=== PATIENT | female | born 1935 | race Caucasian/White ===

== ENCOUNTER 2018-05-05 20:17 | Inpatient (IN) | payer OTHER ==
[~2018-05-05] VITALS: Ht 162.6 cm; Wt 55.1 kg
--- NOTE | ~2018-05-05 | O ---
[facility] [place] [address] OPERATIVE REPORT Name: TENNILLE HESS Room #: 242-P ADM IN M.R.#: [id number] Admission: 05/05/18 Attend Phys: Bowen Larsen MD Discharge: Date of : 36 Report #: [id number] THIS REPORT FOR: //name// CC: Isiah Larsen MD DATE OF SERVICE: 05/11/2018 SURGEON: Zen Fraser MD GRAIN FARMWORKER: NICKY Castillo PREOPERATIVE DIAGNOSES: 1. Perforated viscus. 2. Hypertension. 3. Hyperlipidemia. 4. Seizures. POSTOPERATIVE DIAGNOSES: 1. Perforated duodenal ulcer. 2. Hypertension. 3. Hyperlipidemia. 4. Seizures. PROCEDURES: 1. Exploratory laparotomy. 2. Suture repair of perforated duodenal ulcer. 3. Mobilization and omental flap buttressing of perforated duodenal ulcer repair. 4. Placement of negative pressure topical wound VAC. ANESTHESIA: General anesthesia. ESTIMATED BLOOD LOSS: 5 mL. SPECIMEN: None. COMPLICATIONS: None appreciated. INDICATIONS FOR PROCEDURE: This is an 82-year-old female patient who resides at [facility] who was found down with an altered mental status on 05/04/2018. She was admitted to [facility] and had witnessed seizure activity while in the intensive care unit. She has had difficulty with left upper quadrant abdominal pain and developed worsening abdominal pain and distention over the past couple of days while not passing flatus or bowel movements. CT of the abdomen and pelvis today revealed a moderate amount of [facility] [address] [place] [address] OPERATIVE REPORT Name: TENNILLE HESS Room #: 242-P ADM IN M.R.#: [id number] Admission: 05/05/18 Attend Phys: Bowen Larsen MD Discharge: Date of : 36 Report #: [id number] free intraperitoneal air in the upper abdomen and diverticulosis without diverticulitis changes. On exam, the patient had tenderness to palpation in the upper abdomen with rebound and mild voluntary guarding. She presents for exploratory laparotomy for a perforated viscus. OPERATIVE FINDINGS: Upon entrance in the abdominal cavity, free fluid was encountered and with further exploration in the right upper quadrant of the abdomen, she was found to have a 2.5 cm perforation of the duodenal bulb. Light green-colored fluid was present in this area. She also was amenable to primary transverse repair so as not to narrow the lumen of the duodenum. There was no bleeding associated with the ulcer. The ulcer was located on the anterior surface of the duodenal bulb. I was able to mobilize an omental flap for buttressing. After placing the flap, there was no tension on the repair. No other significant intra-abdominal pathology was identified; however, the colon was distended. There were no acute inflammatory changes associated with the colon. No palpable masses or firm stool was present. The nasogastric tube had been placed beyond the repair prior to closure of the ulcer. At the conclusion of the operation, the sponge, needle, and instrument counts were correct. DESCRIPTION OF PROCEDURE IN DETAIL: After the risks, benefits, and expectations were discussed in detail with the patient and her power of employee benefits attorney, informed consent was obtained. The patient was identified in the preoperative holding area. She was given IV antibiotics as documented in the chart in line with the SCIP metrics. The patient was then taken to the operating room and she was placed in the supine position. SCDs were placed on the patient's bilateral lower extremities and pneumatic compression was initiated. The patient was then given IV sedation and she was intubated without incident. A time-out was performed to identify the correct patient and procedure after prepping and draping the patient's abdomen. A sharp #10 blade scalpel was used to make a vertical upper midline incision through the skin and subcutaneous tissue. Electrocautery was used to dissect further through the subcutaneous tissue down to the fascia. The fascia was then opened along the length of the incision with electrocautery. The peritoneum was entered. Free fluid was encountered as was a krause of free air. Upon palpation of the duodenum, light green-colored enteric fluid was encountered. This was readily suctioned. The ulcer was immediately seen. The incision was extended in a more cephalad and inferior direction along the midline and the fascia was opened accordingly with electrocautery. Bleeding points were made hemostatic. The Omni retractor was then placed and an omental flap was mobilized as a vascular pedicle to help buttress the repair. [id number] 3-0 PDS sutures were then placed x 5 transversely to primarily close the defect. The tails of the sutures were left intact. These were used to secure the omental flap to the repair. After doing so, simple interrupted 3-0 PDS sutures were used to further secure the flap to the serosal surface of [address] [address] OPERATIVE REPORT Name: TENNILLE HESS Room #: 242-P [facility] IN M.R.#: [id number] Admission: 05/05/18 Attend Phys: Bowen Larsen MD Discharge: Date of : 36 Report #: [id number] the duodenum. A 19-Turkish KHOI drain was then placed within the abdominal cavity and brought out through a stab wound in the right lower quadrant of the abdomen. The drain was secured to the skin with a 2-0 nylon suture. It was positioned intraabdominally to course near the repair. The abdominal cavity was then copiously irrigated and suctioned until return of all drainage ran clear. This required nearly 5 liters of fluid. After ensuring final hemostasis within the abdominal cavity, the midline abdominal wall fascia was closed with a running looped #1 PDS suture. Prior to tying the suture, digital exam revealed no incorporation of bowel or other contents. A malleable retractor had been used to help with closure. Prior to closure, the sponge, needle and instrument counts were correct as well. The wound was then irrigated with normal saline. The skin was closed with corrie. The skin was then cleansed and dried. Benzoin was applied and the Prevena topical wound VAC was placed with a good seal and no leak. The patient tolerated the procedure well. She was awakened, however, not breathing off her anesthetic and remained intubated. She was transferred to the recovery room in stable condition with plans for transfer to the intensive care unit for immediate postoperative management and ventilator weaning. I communicated with Dr. Larsen, the managing primary care physician/ hospitalist immediately after the operation. We will plan to inject the nasogastric tube with contrast on postoperative day #4 prior to initiating po intake. The patient will also likely need TPN for nutritional support. <ELECTRONICALLY SIGNED> By: Zen Fraser MD, FACS 05/12/18 0740 1659 1744 Zen Fraser MD, FACS /nt
--- NOTE | ~2018-05-05 | HC ---
[facility] [place] [address] CONSULTATION Name: TENNILLE HESS Room #: 245-P ADM IN M.R.#: [id number] Admission: 05/05/18 Attend Phys: Bowen Larsen MD Discharge: Date of : 36 Report #: [id number] THIS REPORT FOR: //name// CC: Isiah Larsen REASON FOR CONSULTATION: I was asked to evaluate concerning encephalopathy and leukocytosis. HISTORY OF PRESENT ILLNESS: The patient is an 82-year-old who presents by EMS to the Emergency Room on 05/05/2018 after being found on the floor in her apartment at [facility] by her neighbor. She had had issues with hypertension and Dr. Parker had been adjusting her medications. This history is from the patient's nurse who has talked with her family. Apparently, she was having issues with uncontrolled blood pressure. She is having some back pain. Missed 2 meals yesterday and was found on the floor unconscious in her underwear. There was no emesis. She had not lost bowel or bladder function. EMS measured her blood sugar, it was 132. She then awoke and was agitated when she presented to the Emergency Room. She then, during her evaluation, had a witnessed seizure. Now given Ativan. The patient was unable to give any details of her history. She was confused; however, she was awake and conversant. She did not follow commands consistently. She has remained afebrile and hemodynamically stable. She did receive several liters of fluid from her initial admission. No other report of trauma. No history of seizure disorder. As far as I can tell, there were no fevers, chills or sweats in the days leading up to her presentation. ALLERGIES: None. MEDICATIONS: As noted on her MAR, medications include lorazepam, Keppra, vancomycin and Zosyn. PAST MEDICAL HISTORY: Hypertension, otherwise unclear at this time. FAMILY HISTORY AND SOCIAL HISTORY: Otherwise not available. REVIEW OF SYSTEMS: She has had no cough or sputum production. She has had no nausea, vomiting or diarrhea. She now has indwelling Jacobson catheter. IV access intact. Oxygen at 2 liters per nasal cannula. PHYSICAL EXAMINATION: VITAL SIGNS: Afebrile. Her temperature on admission was 95.3, blood pressure 118/68, MAP of 77, pulse was 81, O2 saturation 99% on 2 liters per nasal cannula. HEENT: Unremarkable. NECK: 1+ rigidity, although her muscle tone was increased throughout and was most consistent with her extremity examination. [address] [address] CONSULTATION Name: TENNILLE HESS Room #: 245-P [facility] IN M.R.#: [id number] Admission: 05/05/18 Attend Phys: Bowen Larsen MD Discharge: Date of : 36 Report #: [id number] SKIN: Several bruises to her lower extremities. No ulcerations or cellulitis identified. No adenopathy. LUNGS: Clear. HEART: Regular without murmur. ABDOMEN: Soft, nontender, no hepatosplenomegaly or mass appreciated. GENITOURINARY: External genitalia unremarkable with indwelling Jacobson catheter. EXTREMITIES: Unremarkable. NEUROLOGIC: Nonfocal. She was alert and able to converse, although was confused. LABORATORY STUDIES: Initial sodium was 123, now 131; potassium 3.2; bicarbonate at 25; creatinine 1.4; AST 121; bilirubin 1.3; alkaline phosphatase 142; ALT 44; albumin 4. CPK 4244. Troponin 2.27. BNP 41,542. Hemoglobin 12.8; white count 18,000; platelet count 218,000. Differential with 86% neutrophils, 9% lymphs. TSH 1.4. Vitamin B12 1166. Urinalysis 3+ protein, 2+ glucose, 1+ ketones, 3+ blood with rare wbc's, few rbc's, few bacteria. Blood cultures are pending. Chest x-ray was clear. CT scan of the head showed no acute change. IMPRESSION: An 82-year-old with altered mental status, having been found down at home, having evidence of a seizure, unclear if she had a seizure at her home or this was just a finding since admission. She has a leukocytosis, likely acute kidney injury, rhabdomyolysis, possibly cardiac injury with the elevated troponin. She had hypothermia with transient hypotension down in the 90s systolic. Still unclear if the leukocytosis is related to stress reaction or underlying infection. With the altered mental status and leukocytosis, we will need to evaluate further for evidence of meningoencephalitis. RECOMMENDATIONS: We will continue broad antibiotic coverage including acyclovir. Arrange for lumbar puncture. Await EEG and echocardiogram. Continue full support. <ELECTRONICALLY SIGNED> By: Rizwan Duff MD 05/06/18 1735 0925 1508 Rizwan Duff MD /nt
--- NOTE | ~2018-05-05 | EEG ---
[facility] [place] [address] ELECTROENCEPHALOGRAM Name: TENNILLE HESS Room #: 242-P ADM IN M.R.#: [id number] Admission: 05/05/18 Attend Phys: Bowen Larsen MD Discharge: Date of : 36 Report #: [id number] THIS REPORT FOR: //name// CC: Isiah Larsen DATE OF SERVICE: 05/07/2018 DATE OF EE05/07/2018. This patient is being evaluated for the seizure. EEG was done by placing the electrode by standard 10-20 system of electrode placement. Both referential and sequential montages were used for recording. Background activity in this patient's EEG is about 8 Hz and 30 microvolt. Photic stimulation is unremarkable. The patient went to sleep and that is associated with bilaterally symmetrical sleep spindle and vertex sharp waves. Seizure activity is still present, but appeared to have diminished since yesterday. IMPRESSION: Continuation of seizure activity arising in the left cerebral hemisphere, but that is slightly better than yesterday. <ELECTRONICALLY SIGNED> By: Sathya Contreras MD 05/15/18 1423 1439 0345 Sathya Contreras MD /nt
--- NOTE | ~2018-05-05 | EEG ---
[facility] [place] [address] ELECTROENCEPHALOGRAM Name: TENNILLE HESS Room #: 242-P ADM IN M.R.#: [id number] Admission: 05/05/18 Attend Phys: Bowen Larsen MD Discharge: Date of : 36 Report #: [id number] THIS REPORT FOR: //name// CC: Isiah Larsen DATE OF SERVICE: 05/08/2018 This patient is being evaluated for seizures arising from the left side. A lot of artifact is present, but background activity appeared to be about 9-10 Hz and 30 microvolts. The patient appeared to be asleep during part of this EEG and that is associated with bilaterally symmetrical sleep spindle and vertex sharp waves. Photic stimulation is unremarkable. Epileptiform activity arising from the left cerebral hemisphere is better, but has not resolved. IMPRESSION: Epileptiform activity arising from the left cerebral hemisphere has improved, but has not resolved. Thank you very much for this referral. <ELECTRONICALLY SIGNED> By: Sathya Contreras MD 05/15/18 1423 1732 1744 Sathya Contreras MD /nt
--- NOTE | ~2018-05-05 | 2DMMODE ---
[facility] [address] [place] [address] 2 D/M-MODE ECHOCARDIOGRAM Name: TENNILLE HESS Room #: 245-P ADM IN M.R.#: [id number] Admission: 05/05/18 Attend Phys: Bowen Larsen, Discharge: Date of : 37 Date of Service: 05/06/18 1104 Report #: [id number] THIS REPORT FOR: //name// APPROVED REPORT Study performed: 05/06/2018 08:48:15 EXAM: Comprehensive 2D, Doppler, and color-flow Echocardiogram Patient Location: ICU Room #: [facility] Status: routine BSA: 1.52 HR: 85 bpm BP: 138/62 mmHg Other Information Study Quality: Fair Indications Elevated Troponin 2D Dimensions RVDd: 32.75 mm LVEF(%): 50.90 (>50%) IVSd: 10.01 (7-11mm) LVOT Diam: 18.41 (18-24mm) LVDd: 41.31 mm PWd: 8.80 (7-11mm) Ascending Ao: 24.78 (22-36mm) LVDs: 30.73 (25-40mm) Aortic Root: 25.63 mm Glover's LVEF: 50.90 % Volumes Left Atrial Volume (Systole) Single Plane 4CH: 35.03 mL Single Plane 2CH: 42.60 mL LA ESV Index: 27.00 mL/m2 Aortic Valve AoV Peak Sergey.: 1.35 m/s AO Peak Gr.: 7.87 mmHg LVOT Max P.02 mmHg LVOT Max V: 1.00 m/s HAZEL Vmax: 1.97 cm2 Mitral Valve E/A Ratio: 0.8 MV Decel. Time: 252.22 ms MV E Max Sergey.: 0.71 m/s [facility] [place] [address] 2 D/M-MODE ECHOCARDIOGRAM Name: TENNILLE HESS Room #: 245-P ADM IN M.R.#: [id number] Admission: 05/05/18 Attend Phys: Bowen Larsen, Discharge: Date of : 36 Date of Service: 05/06/18 1104 Report #: [id number] A Sergey.: 0.89 m/s MV PHT: 73.15 ms IVRT: 69.20 ms Pulmonary Valve PV Peak Sergey.: 0.91 m/s PV Peak Gr.: 3.34 mmHg Pulmonary Vein P Vein S: 0.32 m/s P Vein A: 0.32 m/s P Vein D: 0.26 m/s P Vein A Dur.: 110.7 msec P Vein S/D Ratio: 1.23 Tricuspid Valve TR Peak Sergey.: 3.77 m/s TR Peak Gr.: 56.90 mmHg PA Pressure: 60.00 mmHg Left Ventricle The left ventricle is normal size. There is normal left ventricular wall thickness. The left ventricular systolic function is normal. The left ventricular ejection fraction is within the normal range. LVEF is 55-60%. Grade I - abnormal relaxation pattern. Right Ventricle The right ventricle is normal size. The right ventricular systolic function is normal. Atria The left atrium size is normal. The right atrium size is normal. Aortic Valve The aortic valve is normal in structure. Aortic valve is calcified. Trace to mild aortic regurgitation. There is no aortic valvular stenosis. Mitral Valve The mitral valve is normal in structure. Mild mitral regurgitation. No evidence of mitral valve stenosis. Tricuspid Valve The tricuspid valve is normal in structure. There is trace to mild tricuspid regurgitation. Estimated PAP 60 mmHg plus the right atrial pressure. There is moderate pulmonary hypertension. Pulmonic Valve [address] [address] 2 D/M-MODE ECHOCARDIOGRAM Name: TENNILLE HESS Room #: 245-P [facility] IN ..#: [id number] Admission: 05/05/18 Attend Phys: Bowen Larsen, Discharge: Date of : 36 Date of Service: 05/06/18 1104 Report #: [id number] The pulmonary valve is normal in structure. There is no pulmonic valvular regurgitation. Great Vessels The aortic root is normal in size. IVC is not well visualized. Pericardium There is no pericardial effusion. <Conclusion> The left ventricle is normal size. LVEF is 55-60%. Grade I - abnormal relaxation pattern. The right ventricle is normal size. The left atrium size is normal. The aortic valve is normal in structure. Aortic valve is calcified. Trace to mild aortic regurgitation. Mild mitral regurgitation. There is trace to mild tricuspid regurgitation. Estimated PAP 60 mmHg plus the right atrial pressure. There is moderate pulmonary hypertension. There is no pulmonic valvular regurgitation. The aortic root is normal in size. There is no pericardial effusion. <ELECTRONICALLY SIGNED> By: Lennox Monahan MD, FACC 05/06/18 1104 1104 1104 Lennox Monahan MD, FACC /INF
--- NOTE | ~2018-05-05 | HC ---
[facility] [place] [address] CONSULTATION Name: TENNILLE HESS Room #: 242-P ADM IN M.R.#: [id number] Admission: 05/05/18 Attend Phys: Bowen Larsen MD Discharge: Date of : 36 Report #: [id number] THIS REPORT FOR: //name// CC: Isiah Larsen DATE OF SERVICE: 05/06/2018 HISTORY OF PRESENT ILLNESS: This is an 82-year-old female patient who is not able to provide any reliable history. I talked to the nurse practitioner who saw this patient on admission, and I talked to the nurses looking after this patient. Neurology consult was requested this morning because the nurses noticed that the patient had a seizure. It looks like it was a grand mal seizure which came spontaneously. It lasted for a few minutes, and she was unresponsive at that time, but she has become more responsive, but not much. Review of the records indicate that this patient lives in independent living, but she was found unresponsive. What caused her unresponsiveness is not clear. She has multiple metabolic abnormalities. REVIEW OF SYSTEMS: Indicates that this patient lives in independent living. I do not have the number of any durable power of employment law attorney on her. Records indicate that she is on a blood thinner, which is Plavix. This patient was found unresponsive in her apartment. Her blood sugar is 132. It is not clear when she took the last dose of her Plavix. I am not able to reach any family in this patient. She was found to have multiple abnormalities when she was in the Emergency Room. It looks like her white count was 25.7. Her hemoglobin was 17, indicating that she might be dehydrated. Her GFR was only 36. Her sodium was 123, and her potassium was low and so was her magnesium, and they are all being replaced. She was hypothermic. She also had an elevated troponin level. The best I can tell, she does not have a seizure disorder, but I am not able to reach anybody to confirm the history. REVIEW OF SYSTEMS: A 14-point review of system was carried out, but it was mostly from the records. This is because the patient cannot provide any history. Relevant 14-point review of system is summarized above. PAST MEDICAL HISTORY: Basically unavailable in this patient because nobody can provide any history. I cannot get it from the record or from the patient. FAMILY HISTORY: Also unavailable. SOCIAL HISTORY: She lives in an independent living. There was some question that she drinks occasional alcohol, but that history is not confirmed. PHYSICAL EXAMINATION: Indicates she is sleepy, but she wakes up, she says something which is not understandable. She does not follow commands on a [facility] [address] [place] [address] CONSULTATION Name: TENNILLE HESS Room #: 242-P [facility] IN M.R.#: [id number] Admission: 05/05/18 Attend Phys: Bowen Larsen MD Discharge: Date of : 36 Report #: [id number] persistent basis, but she does it on an occasional basis. Cranial nerve examination 2-12 was attempted, it is very difficult to carry out in this patient, and I could not have any definite impression. I do not even know whether she can move all 4 extremities because she will not cooperate. I tried to do the sensation, but she was not able to cooperate. She does not understand the instruction for cerebellar sign, and she cannot cooperate with the fundus examination. She is moderately built individual who does not have any dysmorphic features of eyes, ears and face. I believe she can hear and see things. She does not have a thyroid mass. Pulses are difficult to feel. She does not appear to have edema or cyanosis. VITAL SIGNS: Blood pressure is 133/55, pulse is 81, respirations 21. LABORATORY DATA: White count is high at 25.7, and she has multiple electrolyte abnormality. She did have a CT scan of the head on admission and that was reviewed and that does not show any definite abnormality. We cannot get any history whether there is any contraindication for MRI in this patient or not. IMPRESSION: Pretty difficult to form in this patient because no history is available. Part of her problem is hyponatremia, but we do not know the cause of her hyponatremia either, especially we do not know whether it is part of syndrome of inappropriate antidiuretic hormone secretion or not. She does appear to be septic with a white count so high. She is also keeping her neck extended and that is also difficult to evaluate because of her limited ability to cooperate. The question of the blood thinners is also not very clear. All of it make the evaluation and management of this patient very difficult. RECOMMENDATIONS: 1. Ideally, this patient should have a spinal tap. We do not know the history of Plavix in this patient. If she had Plavix recently, we have to wait for the spinal tap. In the meantime, I will suggest treating her sepsis and probably starting on CARGO VESSEL STEWARDESS penetrating antimicrobial in case there is a CARGO VESSEL STEWARDESS infection. When the history becomes more clear, I would like to do an MRI as well as an LP. I discussed the patient with a nurse practitioner health care consultant for hospitalist and discussed my plan with her. She okayed a consult with Dr. Duff from Infectious Disease, and we will consult him and see if we can start her on some CARGO VESSEL STEWARDESS penetrating antimicrobial until we get some more history. 2. I will go ahead and do an EEG in this patient. I will continue Keppra since she had a seizure. I would like to do a C-spine CT to make sure there is no pathology there, especially because she was found passed off and cannot clear her neck by her symptoms. Once the more history is available, we might like to do an MRI in this patient if there is no contraindication and maybe, an LP depending upon when the last dose of Plavix. [facility] [address] [place] [address] CONSULTATION Name: TENNILLE HESS Room #: 242-P ADM IN M.R.#: [id number] Admission: 05/05/18 Attend Phys: Bowen Larsen MD Discharge: Date of : 36 Report #: [id number] Thank you very much for this referral and if you have any questions please feel free to contact me. <ELECTRONICALLY SIGNED> By: Sathya Contreras MD 05/15/18 1422 0713 1108 Sathya Contreras MD /nt
--- NOTE | ~2018-05-05 | EEG ---
[facility] [place] [address] ELECTROENCEPHALOGRAM Name: TENNILLE HESS Room #: 242-P ADM IN M.R.#: [id number] Admission: 05/05/18 Attend Phys: Bowen Larsen MD Discharge: Date of : 37 Report #: [id number] THIS REPORT FOR: //name// CC: Isiah Larsen DATE OF SERVICE: 05/06/2018 This patient is being evaluated for seizures. EEG was done by placing the electrode by standard 10-20 system of electrode placement. Both referential and sequential montages were used for recording. Background activity on the right side appeared to be about 8 Hz and 30 microvolt. On the left side, epileptiform activity was noticed arising from the frontotemporal area. The patient is drowsy and that is associated with bilateral slowing. Photic stimulation is unremarkable. IMPRESSION: This is an abnormal EEG, which demonstrate finding consistent with periodic lateralizing epileptiform discharges from the left cerebral hemisphere. Because of that, the possibility of a stroke or infection in that region should be excluded. These can occur because of epilepsy also, but other etiologies must be excluded. Thank you very much for this referral. <ELECTRONICALLY SIGNED> By: Sathya Contreras MD 05/15/18 1423 1210 1240 Sathya Contreras MD /nt
--- NOTE | ~2018-05-05 | EKG ---
[address] [address] ELECTROCARDIOGRAM REPORT Name: TENNILLE HESS Room #: 245-P ADM IN M.R.#: [id number] Admission: 05/05/18 Attend Phys: Bowen Larsen MD Discharge: Date of : 37 Report #: [id number] THIS REPORT FOR: //name// [facility] ED Test Date: 2018-05-05 Test Time: 20:54:59 Pat Name: TENNILLE HESS Department: Room: Gender: F Cook Helper: rafael : 1935 Requested By: Mike Granado Order Number: [id number] MD: Guanakito Villalba Measurements Intervals Valders Rate: 51 P: 0 CO: 161 QRS: -24 QRSD: 91 T: 1 QT: 584 QTc: 539 Interpretive Statements Sinus rhythm Borderline left axis deviation Prolonged QT interval No previous ECG available for comparison Electronically Signed On 05-07-2018 7:35:44 CDT by Guanakito Villalba [email or web address] <ELECTRONICALLY SIGNED> By: Guanakito Villalba MD, [facility] 05/07/18 0735 53 53 Guanakito Villalba MD, [facility] /EPI
[2018-05-05 20:19] VITALS: BP 138/78
[2018-05-05 20:55] LABS: HEMATOCRIT 50.2 % (37.0-47.0); MCH 32.5 pg (26.0-34.0); MCHC 33.9 g/dL (28.0-37.0); MCV 95.8 fL (80.0-100.0); PLATELET COUNT 332 thou/uL (150-400); RBC 5.24 mil/uL (4.20-5.00); RDW 12.2 % (10.5-14.5); WBC 25.7 thou/uL (4.0-11.0)
[2018-05-05 21:10] LABS: CALCIUM 8.8 mg/dL (8.5-10.1); CREATININE 1.4 mg/dL (0.6-1.0)
[2018-05-05 21:13] LABS: ABSOLUTE NEUTROPHILS 22.1 thou/uL (1.4-8.2)
[2018-05-05 21:15] LABS: POTASSIUM 2.6 mmol/L (3.5-5.1)
[2018-05-05 21:20] LABS: TOTAL BILIRUBIN 1.3 mg/dL (<0.1-1.0); TOTAL PROTEIN 8.4 g/dL (6.4-8.2)
[2018-05-05 21:24] LABS: TROPONIN-I 1.38 ng/mL (<0.06)
[2018-05-05 23:13] LABS: URINE BILIRUBIN NEGATIVE (Negative); URINE BLOOD 3+ (Negative); URINE COLOR YELLOW; URINE GLUCOSE-RANDOM* 2+ (Negative); URINE KETONES 1+ (Negative); URINE LEUKOCYTES-REFLEX NEGATIVE (Negative); URINE NITRITE-REFLEX NEGATIVE (Negative); URINE PROTEIN (DIPSTICK) 3+ (Negative); URINE UROBILINOGEN 0.2 E.U./dl (0.2-1.0)
[2018-05-05 23:15] LABS: URINE CLARITY SL CLOUDY
[2018-05-05 23:22] LABS: SQUAMOUS >10 Many /LPF (0-3)
[2018-05-05 23:23] LABS: BACTERIA-REFLEX 1-9 Few /HPF (None Seen); CASTS None Seen /LPF (None Seen); CRYSTALS None Seen /LPF (None Seen); URINE RBC 3-10 Few /HPF (0-2); URINE WBC-REFLEX 0-5 Rare /HPF (0-5)
[2018-05-05 23:50] VITALS: BP 106/65
[2018-05-06] VITALS (80 sets, daily range): BP systolic 75–187; BP diastolic 47–162
[2018-05-06 04:30] LABS: HEMATOCRIT 37.5 % (37.0-47.0); MCH 32.6 pg (26.0-34.0); MCHC 34.2 g/dL (28.0-37.0); MCV 95.5 fL (80.0-100.0); RBC 3.93 mil/uL (4.20-5.00); RDW 12.3 % (10.5-14.5)
[2018-05-06 04:32] LABS: HEMOGLOBIN 12.8 gm/dL (12.0-15.0)
[2018-05-06 05:06] LABS: CALCIUM 7.6 mg/dL (8.5-10.1); CREATININE 1.4 mg/dL (0.6-1.0); MAGNESIUM 1.6 mg/dL (1.8-2.4); POTASSIUM 3.2 mmol/L (3.5-5.1)
[2018-05-06 05:08] LABS: TROPONIN-I 2.27 ng/mL (<0.06)
[2018-05-06] MEDS ORDERED: NORVASC10 MG PO (08:29)
[2018-05-06] MEDS ORDERED: NORVASC5 MG PO (08:29)
[2018-05-06] MEDS ORDERED: XANAX 0.5 MG0.5 M1 PO (08:30)
[2018-05-06] MEDS ORDERED: LEVOXYL100 MCG PO (08:31)
[2018-05-06] MEDS ORDERED: FOSAMAX 70 MG T70 MG PO (08:53)
[2018-05-06] MEDS ORDERED: PLAVIX 75 MG TA75 M1 PO (08:53)
[2018-05-06 11:46] LABS: MAGNESIUM 2.5 mg/dL (1.8-2.4)
[2018-05-06 11:47] LABS: POTASSIUM 4.5 mmol/L (3.5-5.1)
[2018-05-06 11:50] LABS: APTT 26.4 Seconds (24.5-32.8); FIBRINOGEN 313.1 mg/dL (210-360); INR 1.1; PROTIME 10.8 Seconds (9.3-11.4)
[2018-05-06 14:58] LABS: CSF CLARITY CLEAR; CSF COLOR COLORLESS; VOLUME 13 ml
[2018-05-06 15:06] LABS: CSF GLUCOSE 87 mg/dL (40-70); CSF PROTEIN 69 mg/dL (15-45)
[2018-05-06 15:44] LABS: CSF RBC 6 /mm3; CSF WBC 2 /mm3 (0-10)
[2018-05-06] MEDS ORDERED: ATENOLOL 100MG100 MG PO (16:18)
[2018-05-06] MEDS ORDERED: ASPIR 8181 MG PO (16:18)
[2018-05-07] VITALS (23 sets, daily range): BP systolic 126–177; BP diastolic 45–126
[2018-05-07 04:36] LABS: HEMATOCRIT 31.1 % (37.0-47.0); MCHC 35.2 g/dL (28.0-37.0); MCV 96.5 fL (80.0-100.0); RBC 3.22 mil/uL (4.20-5.00); RDW 12.3 % (10.5-14.5); WBC 13.6 thou/uL (4.0-11.0)
[2018-05-07 04:38] LABS: CREATININE 1.1 mg/dL (0.6-1.0); MAGNESIUM 2.4 mg/dL (1.8-2.4); POTASSIUM 3.6 mmol/L (3.5-5.1); TROPONIN-I 0.47 ng/mL (<0.06)
[2018-05-07 08:43] LABS: HSV PCR SOURCE CSF
[2018-05-08] VITALS (24 sets, daily range): BP systolic 155–198; BP diastolic 56–162
[2018-05-08 05:47] LABS: HEMATOCRIT 30.6 % (37.0-47.0); HEMOGLOBIN 10.7 gm/dL (12.0-15.0); MCV 94.1 fL (80.0-100.0); RBC 3.26 mil/uL (4.20-5.00); RDW 12.2 % (10.5-14.5); WBC 15.2 thou/uL (4.0-11.0)
[2018-05-08 06:14] LABS: CALCIUM 7.2 mg/dL (8.5-10.1); CREATININE 0.8 mg/dL (0.6-1.0); MAGNESIUM 2.1 mg/dL (1.8-2.4)
[2018-05-08 20:06] LABS: HSV 1 DNA Negative (Negative); HSV 2 DNA Negative (Negative)
[2018-05-09 00:15] VITALS: BP 166/82
[2018-05-09 04:23] VITALS: BP 146/54
[2018-05-09 05:33] LABS: HEMATOCRIT 28.9 % (37.0-47.0); HEMOGLOBIN 10.2 gm/dL (12.0-15.0); MCH 33.3 pg (26.0-34.0); MCHC 35.2 g/dL (28.0-37.0); MCV 94.6 fL (80.0-100.0); RBC 3.06 mil/uL (4.20-5.00); RDW 12.1 % (10.5-14.5); WBC 12.5 thou/uL (4.0-11.0)
[2018-05-09 05:53] LABS: CALCIUM 7.7 mg/dL (8.5-10.1); CREATININE 0.6 mg/dL (0.6-1.0); MAGNESIUM 1.5 mg/dL (1.8-2.4); POTASSIUM 3.5 mmol/L (3.5-5.1)
[2018-05-09 15:00] VITALS: BP 160/62
[2018-05-09 19:23] VITALS: BP 142/51
[2018-05-10 00:37] VITALS: BP 167/61
[2018-05-10 05:05] VITALS: BP 176/69
[2018-05-10 05:22] LABS: CALCIUM 7.6 mg/dL (8.5-10.1); CREATININE 0.7 mg/dL (0.6-1.0); HEMATOCRIT 25.4 % (37.0-47.0); MAGNESIUM 1.9 mg/dL (1.8-2.4); MCH 33.9 pg (26.0-34.0); MCHC 35.6 g/dL (28.0-37.0); MCV 95.4 fL (80.0-100.0); RBC 2.67 mil/uL (4.20-5.00); RDW 12.3 % (10.5-14.5)
[2018-05-10 05:26] LABS: POTASSIUM 2.9 mmol/L (3.5-5.1)
[2018-05-10 09:12] VITALS: BP 141/53
[2018-05-10 16:08] VITALS: BP 208/91
[2018-05-10 17:58] LABS: MAGNESIUM 2.3 mg/dL (1.8-2.4); POTASSIUM 3.8 mmol/L (3.5-5.1)
[2018-05-10 18:10] VITALS: BP 179/66
[2018-05-10 20:00] VITALS: BP 172/81
[2018-05-11] VITALS (8 sets, daily range): BP systolic 120–180; BP diastolic 51–75
[2018-05-11 11:13] LABS: HEMATOCRIT 35.1 % (37.0-47.0); MCHC 34.7 g/dL (28.0-37.0); MCV 95.1 fL (80.0-100.0); RBC 3.69 mil/uL (4.20-5.00); RDW 12.5 % (10.5-14.5); WBC 13.1 thou/uL (4.0-11.0)
[2018-05-11 11:28] LABS: ALBUMIN 1.9 g/dL (3.4-5.0); CALCIUM 8.1 mg/dL (8.5-10.1); CREATININE 0.8 mg/dL (0.6-1.0); MAGNESIUM 1.9 mg/dL (1.8-2.4); POTASSIUM 3.1 mmol/L (3.5-5.1); TOTAL BILIRUBIN 0.3 mg/dL (<0.1-1.0); TOTAL PROTEIN 4.8 g/dL (6.4-8.2)
[2018-05-11 11:31] LABS: HEMOGLOBIN 12.2 gm/dL (12.0-15.0)
[2018-05-11 18:44] LABS: BE(vivo) -5.1 mmol/L (-2 to +3); HCO3 19.9 mmol/L (22.0-26.0); PO2 502.3 mmHg (80.0-100.0); pH 7.349 (7.360-7.450); sO2 99.9 % (92.0-98.0)
[2018-05-11 22:11] LABS: ICTOTEST (BILI CONFIRMATORY) Negative (Negative); URINE BILIRUBIN NEGATIVE (Negative); URINE BLOOD 2+ (Negative); URINE CLARITY CLEAR; URINE COLOR YELLOW; URINE GLUCOSE-RANDOM* NEGATIVE (Negative); URINE KETONES TRACE (Negative); URINE LEUKOCYTES-REFLEX NEGATIVE (Negative); URINE NITRITE-REFLEX NEGATIVE (Negative); URINE PROTEIN (DIPSTICK) 1+ (Negative); URINE SPECIFIC GRAVITY <= 1.005 (1.005-1.035); URINE UROBILINOGEN 0.2 E.U./dl (0.2-1.0)
[2018-05-11 22:19] LABS: BACTERIA-REFLEX 1-9 Few /HPF (None Seen); CASTS None Seen /LPF (None Seen); CRYSTALS None Seen /LPF (None Seen); SQUAMOUS 0-3 Few /LPF (0-3); URINE RBC 3-10 Few /HPF (0-2); URINE WBC-REFLEX None Seen /HPF (0-5)
[2018-05-12] VITALS (25 sets, daily range): BP systolic 106–155; BP diastolic 39–65
[2018-05-12 04:45] LABS: CREATININE 1.3 mg/dL (0.6-1.0); MAGNESIUM 2.1 mg/dL (1.8-2.4); POTASSIUM 4.1 mmol/L (3.5-5.1)
[2018-05-12 05:43] LABS: HEMATOCRIT 32.6 % (37.0-47.0); HEMOGLOBIN 11.2 gm/dL (12.0-15.0); MCH 33.4 pg (26.0-34.0); MCHC 34.3 g/dL (28.0-37.0); MCV 97.4 fL (80.0-100.0); RBC 3.35 mil/uL (4.20-5.00); RDW 12.6 % (10.5-14.5); WBC 16.1 thou/uL (4.0-11.0)
[2018-05-12 15:42] LABS: CALCIUM 7.7 mg/dL (8.5-10.1); CREATININE 1.4 mg/dL (0.6-1.0); POTASSIUM 3.6 mmol/L (3.5-5.1)
[2018-05-13] VITALS (25 sets, daily range): BP systolic 130–192; BP diastolic 46–85
[2018-05-13 05:34] LABS: ABSOLUTE NEUTROPHILS 9.7 thou/uL (1.4-8.2); BASOPHILS 0.5 % (0.0-2.0); EOSINOPHILS 2.8 % (0.0-3.0); HEMATOCRIT 27.5 % (37.0-47.0); HEMOGLOBIN 9.6 gm/dL (12.0-15.0); MCH 33.3 pg (26.0-34.0); MCHC 35.1 g/dL (28.0-37.0); PLATELET COUNT 237 thou/uL (150-400); POLYS 78.7 % (36.0-66.0); RBC 2.89 mil/uL (4.20-5.00); RDW 12.5 % (10.5-14.5); WBC 12.3 thou/uL (4.0-11.0)
[2018-05-13 05:42] LABS: CREATININE 1.3 mg/dL (0.6-1.0); MAGNESIUM 2.2 mg/dL (1.8-2.4); POTASSIUM 3.7 mmol/L (3.5-5.1)
[2018-05-14] VITALS (25 sets, daily range): BP systolic 147–194; BP diastolic 52–78
[2018-05-14 05:24] LABS: ABSOLUTE NEUTROPHILS 7.8 thou/uL (1.4-8.2); BASOPHILS 0.8 % (0.0-2.0); EOSINOPHILS 3.2 % (0.0-3.0); HEMATOCRIT 28.3 % (37.0-47.0); HEMOGLOBIN 9.5 gm/dL (12.0-15.0); MCH 33.1 pg (26.0-34.0); MCHC 33.4 g/dL (28.0-37.0); MCV 99.3 fL (80.0-100.0); MONOCYTES 8.3 % (1.0-8.0); PLATELET COUNT 251 thou/uL (150-400); POLYS 75.7 % (36.0-66.0); RBC 2.85 mil/uL (4.20-5.00); RDW 13.3 % (10.5-14.5); WBC 10.3 thou/uL (4.0-11.0)
[2018-05-14 05:30] LABS: CALCIUM 7.9 mg/dL (8.5-10.1); CREATININE 0.9 mg/dL (0.6-1.0); PHOSPHORUS 3.9 mg/dL (2.5-4.9); POTASSIUM 4.1 mmol/L (3.5-5.1)
[2018-05-15] VITALS (17 sets, daily range): BP systolic 127–181; BP diastolic 50–96
[2018-05-15 05:15] LABS: ABSOLUTE NEUTROPHILS 8.7 thou/uL (1.4-8.2); BASOPHILS 0.6 % (0.0-2.0); EOSINOPHILS 2.4 % (0.0-3.0); HEMOGLOBIN 9.5 gm/dL (12.0-15.0); LYMPHOCYTES 9.2 % (24.0-44.0); MCH 33.7 pg (26.0-34.0); MCV 99.1 fL (80.0-100.0); MONOCYTES 8.4 % (1.0-8.0); PLATELET COUNT 220 thou/uL (150-400); POLYS 79.4 % (36.0-66.0); RBC 2.83 mil/uL (4.20-5.00); RDW 12.8 % (10.5-14.5); WBC 10.9 thou/uL (4.0-11.0)
[2018-05-15 05:20] LABS: ALBUMIN 1.5 g/dL (3.4-5.0); CALCIUM 7.8 mg/dL (8.5-10.1); CREATININE 0.8 mg/dL (0.6-1.0); MAGNESIUM 1.8 mg/dL (1.8-2.4); POTASSIUM 3.9 mmol/L (3.5-5.1); TOTAL BILIRUBIN 0.1 mg/dL (<0.1-1.0); TOTAL PROTEIN 4.9 g/dL (6.4-8.2)
[2018-05-16] VITALS (7 sets, daily range): BP systolic 163–186; BP diastolic 64–73
[2018-05-16 05:04] LABS: HEMATOCRIT 29.1 % (37.0-47.0); HEMOGLOBIN 9.7 gm/dL (12.0-15.0); MCH 32.4 pg (26.0-34.0); MCHC 33.4 g/dL (28.0-37.0); PLATELET COUNT 266 thou/uL (150-400); RDW 12.7 % (10.5-14.5); WBC 14.7 thou/uL (4.0-11.0)
[2018-05-16 05:17] LABS: ALBUMIN 1.5 g/dL (3.4-5.0); CALCIUM 7.8 mg/dL (8.5-10.1); CREATININE 0.7 mg/dL (0.6-1.0); POTASSIUM 3.4 mmol/L (3.5-5.1); TOTAL BILIRUBIN 0.2 mg/dL (<0.1-1.0); TOTAL PROTEIN 5.1 g/dL (6.4-8.2)
[2018-05-16 09:37] LABS: ABSOLUTE NEUTROPHILS 12.2 thou/uL (1.4-8.2); ANISOCYTOSIS SLIGHT; MYELOCYTES 1 %
[2018-05-16 09:38] LABS: LARGE PLATELETS OCCASIONAL
[2018-05-17 03:30] LABS: ABSOLUTE NEUTROPHILS 11.3 thou/uL (1.4-8.2); BASOPHILS 0.9 % (0.0-2.0); EOSINOPHILS 1.9 % (0.0-3.0); HEMATOCRIT 29.4 % (37.0-47.0); HEMOGLOBIN 10.1 gm/dL (12.0-15.0); LYMPHOCYTES 9.8 % (24.0-44.0); MCH 33.1 pg (26.0-34.0); MCHC 34.2 g/dL (28.0-37.0); MCV 96.7 fL (80.0-100.0); MONOCYTES 6.9 % (1.0-8.0); PLATELET COUNT 296 thou/uL (150-400); POLYS 80.5 % (36.0-66.0); RBC 3.04 mil/uL (4.20-5.00); RDW 12.9 % (10.5-14.5)
[2018-05-17 03:38] LABS: CREATININE 0.7 mg/dL (0.6-1.0); POTASSIUM 3.2 mmol/L (3.5-5.1)
[2018-05-17 04:48] VITALS: BP 175/75
[2018-05-17 07:19] VITALS: BP 163/75
[2018-05-17 11:57] VITALS: BP 171/84
[2018-05-17 17:14] VITALS: BP 166/99
[2018-05-17 17:37] LABS: MAGNESIUM 2.5 mg/dL (1.8-2.4); POTASSIUM 3.9 mmol/L (3.5-5.1)
[2018-05-17 19:20] VITALS: BP 153/80
[2018-05-18 03:38] VITALS: BP 176/77
[2018-05-18 04:24] LABS: HEMOGLOBIN 10.1 gm/dL (12.0-15.0); MCH 33.6 pg (26.0-34.0); MCHC 34.7 g/dL (28.0-37.0); MCV 96.9 fL (80.0-100.0); RBC 2.99 mil/uL (4.20-5.00); RDW 12.7 % (10.5-14.5); WBC 12.1 thou/uL (4.0-11.0)
[2018-05-18 04:27] LABS: ALBUMIN 1.6 g/dL (3.4-5.0); CREATININE 0.8 mg/dL (0.6-1.0); POTASSIUM 3.7 mmol/L (3.5-5.1); TOTAL BILIRUBIN 0.3 mg/dL (<0.1-1.0); TOTAL PROTEIN 5.5 g/dL (6.4-8.2)
[2018-05-18 05:13] VITALS: BP 169/77
[2018-05-18 07:18] VITALS: BP 196/82
[2018-05-18 11:27] VITALS: BP 159/81
[2018-05-18 15:46] VITALS: BP 158/87
[2018-05-18 19:49] VITALS: BP 155/87
[2018-05-19 05:05] VITALS: BP 175/79
[2018-05-19 06:47] LABS: ABSOLUTE NEUTROPHILS 6.9 thou/uL (1.4-8.2); EOSINOPHILS 2.8 % (0.0-3.0); HEMATOCRIT 26.7 % (37.0-47.0); HEMOGLOBIN 9.4 gm/dL (12.0-15.0); LYMPHOCYTES 17.2 % (24.0-44.0); MCH 34.3 pg (26.0-34.0); MCHC 35.4 g/dL (28.0-37.0); MONOCYTES 8.9 % (1.0-8.0); PLATELET COUNT 297 thou/uL (150-400); POLYS 70.1 % (36.0-66.0); RBC 2.75 mil/uL (4.20-5.00); RDW 12.7 % (10.5-14.5); WBC 9.9 thou/uL (4.0-11.0)
[2018-05-19 06:56] LABS: CREATININE 0.7 mg/dL (0.6-1.0)
[2018-05-19 07:27] VITALS: BP 191/83
[2018-05-19 12:03] VITALS: BP 202/95
[2018-05-19 12:46] VITALS: BP 177/69
[2018-05-19] MEDS ORDERED: LISINOPRIL10 MG PO (16:12)
[2018-05-19] MEDS ORDERED: ENALAPRILA1.25 MG/M1 IV PUSH (16:12)
[2018-05-19] MEDS ORDERED: ZOSYN 3.373.375 GM/1 IV (16:12)
[2018-05-19] MEDS ORDERED: KEPPRA750 MG PO (16:12)
[2018-05-19] MEDS ORDERED: ATIVAN0.5 MG PO (16:12)
[2018-05-19] MEDS ORDERED: ACCUNEB SO1.25 MG/1 INH (16:12)
[2018-05-19] MEDS ORDERED: FENTANYL 0.50 MCG/ML IV PUSH (16:12)
[2018-05-19] MEDS ORDERED: DIFLUCAN200 MG PO (16:12)
[2018-05-19 17:37] VITALS: BP 162/70
== END 2018-05-19 18:00 | DRG 853 ==
LOC: ER 20:17 → EROBS 22:08 → 2N 22:08 → ICU 22:08 → 4E 05-08 15:45 → ICU 05-08 15:45 → 4E 05-08 15:45 → ICU 05-11 18:06 → 2N 05-15 15:33 → ICU 05-15 15:33 → 2N 05-19 18:00
PROVIDERS: Emergency Medicine; Hospitalist; Internal Medicine; Internal Medicine Pulmonary Disease; Nurse Practitioner Acute Care; Specialist; Surgery
PROC: B01B1ZZ Fluoroscopy of Spinal Cord using Low Osmolar Contrast (ICD-10-PCS; principal; 2018-05-06)
PROC: 02HV33Z Insertion of Infusion Device into Superior Vena Cava, Percutaneous Approach (ICD-10-PCS; principal; 2018-05-06)
PROC: 009U3ZX Drainage of Spinal Canal, Percutaneous Approach, Diagnostic (ICD-10-PCS; principal; 2018-05-06)
PROC: B548ZZA Ultrasonography of Superior Vena Cava, Guidance (ICD-10-PCS; principal; 2018-05-06)
PROC: 06H03DZ Insertion of Intraluminal Device into Inferior Vena Cava, Percutaneous Approach (ICD-10-PCS; 2018-05-11)
PROC: 0DU907Z Supplement Duodenum with Autologous Tissue Substitute, Open Approach (ICD-10-PCS; 2018-05-11)
DX: A41.9 Sepsis, unspecified organism (principal); G92 Toxic encephalopathy; K26.5 Chronic or unspecified duodenal ulcer with perforation; K63.1 Perforation of intestine (nontraumatic); I26.99 Other pulmonary embolism without acute cor pulmonale; J96.01 Acute respiratory failure with hypoxia; K65.9 Peritonitis, unspecified; I63.9 Cerebral infarction, unspecified; E87.1 Hypo-osmolality and hyponatremia; N17.9 Acute kidney failure, unspecified; E87.0 Hyperosmolality and hypernatremia; E87.2 Acidosis; J98.11 Atelectasis; G81.91 Hemiplegia, unspecified affecting right dominant side; Z66 Do not resuscitate; M62.84 Sarcopenia; G40.909 Epilepsy, unspecified, not intractable, without status epilepticus; I27.20 Pulmonary hypertension, unspecified; E83.42 Hypomagnesemia; M51.9 Unspecified thoracic, thoracolumbar and lumbosacral intervertebral disc disorder; R65.20 Severe sepsis without septic shock; E03.9 Hypothyroidism, unspecified; E86.0 Dehydration; E87.6 Hypokalemia; I10 Essential (primary) hypertension; E78.5 Hyperlipidemia, unspecified; Z79.02 Long term (current) use of antithrombotics/antiplatelets; Z79.82 Long term (current) use of aspirin; Z79.899 Other long term (current) drug therapy
CPT/HCPCS: 10078; 10081; 10084; 10183; 10194; 10196; 10203; 27000; 50010; 50101; 50331; 50386; 50455; 50953; 51412; 56525; 56527; 56530; 57092; 62110; 62900; 70005

== ENCOUNTER 2018-05-19 16:33 | Inpatient (IN) | payer OTHER ==
[~2018-05-19] VITALS: Ht 162.6 cm; Wt 49.3 kg
--- NOTE | ~2018-05-19 | H ---
[facility] [place] [place] [address] HISTORY AND PHYSICAL Name: TENNILLE HESS Room #: 512-P ADM IN M.R.#: [id number] Admission: 05/19/18 Attend Phys: Clint Jaramillo MD Discharge: Date of : 37 Report #: [id number] THIS REPORT FOR: //name// CC: Clint Joyce [facility] DATE OF SERVICE: 05/20/2018 STORY OF PRESENT ILLNESS: The patient is an 82-year-old white female originally admitted to [facility] on 05/05/2017 with mental status changes being found unconscious on the floor of her independent living apartment. She was found to have a seizure disorder managed with antiepileptics by Neurology in the ICU. She remained very confused, required soft wrist restraints to avoid from pulling out lines, etc. She was found to have SIRS with lactic acidosis, acute encephalopathy, hypernatremia, acute renal failure. Workup revealed a perforated viscus, duodenal bulb ulcer and she underwent an exploratory laparotomy with washout and a modified Niko patch repair of the perforated duodenal ulcer on 05/11/2018. Postop, she had problems with decreased spontaneous breathing efforts while on the vent and further workup revealed a right lower lobe pulmonary embolism. She was not able to be anticoagulated and underwent IVC filter placement on 05/11/2018. She continued to be followed with gradual improvement. Neurology followed along with her with noted seizure disorder. She had further evaluation regarding her mental status changes with Neurology involved stroke-like symptoms and MRI did reveal development of bilateral cerebral hemispheric infarcts, watershed distribution, basal ganglia and thalamic infarcts as well. It was thought that the distribution was most suggestive of hypoxia from hypotension as an etiology. The patient was noted to have significant functional decline from her premorbid status. She has a KHOI drain right mid abdomen wound VAC to suction. She needs assistance with basic functional mobility and ADL skills and has the cognitive deficits, which are still significant, but improved from prior. She has now been admitted for acute in-hospital inpatient rehabilitation. PAST MEDICAL HISTORY: Includes hypertension and hypothyroidism. MEDICATIONS: Please see the full medication listing. This includes medications, vitamins, herbals, and supplements. ALLERGIES: AMLODIPINE AND LOSARTAN. HABITS: No noted history of any alcohol or tobacco abuse. SOCIAL HISTORY: Had been living alone in an independent living apartment at [facility], used a cane premorbidly. REVIEW OF SYSTEMS: No current complaints of chest pain, shortness of breath, or [address] [address] HISTORY AND PHYSICAL Name: TENNILLE HESS Room #: 512-P [facility] IN ..#: [id number] Admission: 05/19/18 Attend Phys: Clint Jaramillo MD Discharge: Date of : 37 Report #: [id number] abdominal discomfort. No focal extremity pain complaints. PHYSICAL EXAMINATION: GENERAL: She is a pleasant 82-year-old white female, lying in bed, in no obvious distress. VITAL SIGNS: Last recorded temperature 98, pulse 104, respirations 20, blood pressure 133/76. NEUROLOGIC: She is alert, appears to have some right eye Exophthalmia. She is otherwise appeared symmetric. She is quiet, will follow basic 1 step commands. Limited verbalizations. Has difficulty with any more complex commands. CHEST: Sounded clear to auscultation. CARDIOVASCULAR: Regular rate and rhythm. ABDOMEN: She has the wound VAC in place over the midline abdominal incision has a right lower quadrant KHOI drain. Bowel sounds appeared to be positive and soft. She has the indwelling Jacobson catheter. EXTREMITIES: She has functional range of motion of the upper extremity. Strength is grade 3+/5. DTRs are trace to 1. Lower extremities, no focal calf swelling. Strength appears to be a 3+/5. She has moderate comprehensive deficits, noted to have severe memory deficits. Transfers have been max assist of 2. ASSESSMENT: An 82-year-old white female with the following problem list: 1. Multiple cerebrovascular accidents, bilateral cerebral hemisphere distribution, basal ganglia and thalamic. 2. Seizure disorder, on Keppra. 3. Encephalopathy. Noted hypoxia. This is multifactorial. 4. Cerebrovascular accident secondary to hypoperfusion. 5. Perforated duodenal ulcer, status post exploratory laparotomy, 05/11/2018. 6. PE, status post IVC filter. 7. Systemic inflammatory response syndrome with lactic acidosis. 8. Medical complexity with generalized debilitation. 9. Pulmonary hypertension. 10. Hypernatremia. 11. Acute renal failure with electrolyte abnormalities. PLAN: The patient is admitted for acute in-hospital inpatient rehabilitation. From a postadmission physician evaluation perspective, there are no relevant changes since the preadmission screening. Please see the above review of prior and current medical and functional conditions and comorbidities. Please see the patient's previous and current functional status. As far as risk of complications, the patient has multiple medical comorbidities as noted above. Initial plan of care involves the interdisciplinary acute inpatient rehabilitation program with goal of maximizing the patient's functional independence, so she can hopefully return back to her prior living situation. Measurable functional goals would be for her to become modified independent with transfers, mobility and ADLs, so she can hopefully return back to her prior [facility] [address] [place] [address] HISTORY AND PHYSICAL Name: TENNILLE HESS Room #: 512-P ADM IN .R.#: [id number] Admission: 05/19/18 Attend Phys: Clint Jaramillo MD Discharge: Date of : 37 Report #: [id number] living situation. Prognosis is reasonably good with estimated length of stay probably fairly long at least 3 weeks as she is at a lower level. Potential barriers would include her multiple medical comorbidities and decreased functional status. The patient meets diagnostic criteria for an acute in-hospital inpatient rehabilitation stay. She meets the medical necessity criteria and we will have the multiple workforce management consultant physicians continue to follow up. She does have the tolerance for therapies and has appropriate discharge goals back to the home setting. ADDENDUM: I am going to go ahead and add seizure precautions with her history of seizures. <ELECTRONICALLY SIGNED> By: Clint Jaramillo MD 05/20/18 1736 [id number] 0836 Clint Jaramillo MD /nt
--- NOTE | ~2018-05-19 | HC ---
[facility] [place] [address] CONSULTATION Name: TENNILLE HESS Room #: 512-P ADM IN M.R.#: [id number] Admission: 05/19/18 Attend Phys: Clint Jaramillo MD Discharge: Date of : 37 Report #: [id number] THIS REPORT FOR: //name// CC: Clint Joyce [facility] DATE OF SERVICE: 05/24/2018 ATTENDING PHYSICIAN: Clint Jaramillo MD JOINT FILLER: Dwight Gomez PhD CLINICAL PRESENTATION: The patient is an 82-year-old female admitted to [facility] for a comprehensive inpatient rehabilitation program to improve functional mobility, activities of daily living and self-care and mental status secondary to deficits from cerebrovascular accidents. Her diagnosis on admission includes multiple CVAs in bilateral cerebral hemisphere, basal ganglia and thalamic area distributing, seizure disorder, encephalopathy that is likely multifactorial, CVA secondary to hypoperfusion, perforated duodenal ulcer, status post exploratory laparotomy, PE, status post IVC filter, systemic inflammatory response syndrome with lactic acidosis, medical complexity with generalized debility, pulmonary hypertension, hypernatremia and acute renal failure with electrolyte abnormalities. A complete description of her medical condition and history along with medications can be found in her medical record. Neuropsychological consultation was requested to provide assistance in the assessment of cognitive and emotional status and to provide recommendations and services. Prior to this most recent admission, she is reported to have been living in an independent apartment. The patient is a college graduate. Prior to prison, she worked at the [employer]. She does not have children and relies significantly on community support in order to maintain independent living. TECHNIQUES UTILIZED: Clinical interview, review of medical records, staff consultation and behavioral observation, mini-mental status exam 2 standard version, and clock drawing. EXAMINATION FINDINGS: The patient was alert and cooperative with the assessment, but confused. She was unable to describe the reason for her hospitalization, her living arrangement or where she was living. Her lack of memory for recent events is noted. She indicates that her friends can provide the answers to questions throughout the interview in regard to socio-demographic, medical condition and current living arrangements. [facility] [address] [place] [address] CONSULTATION Name: TENNILLE HESS Room #: 512-P [facility] IN M.R.#: [id number] Admission: 05/19/18 Attend Phys: Clint Jaramillo MD Discharge: Date of : 37 Report #: [id number] patient reports being uncertain of the reason for her hospitalization. She also was unable to indicate her current location and how long she lived there. Continued disorientation is suggested. She acknowledges difficulty with memory, word finding, anxiety and depression. Appetite is poor. She reports sleep is good. Her performance on the MMSE 2 brief version is extremely low with a raw score of 11 of 16 and a T score of 21. She was 3 of 3 for initial registration, 4 of 5 for orientation to time, 4 of [address] and 0 of 3 for immediate recall of 3 items after a brief time delay and distraction. Her performance on the MMSE 2 standard version was a T score of 16, which is extremely low with a raw score of 19. She was 1 of 5 for serial 7s, 2 of 2 for naming, 1 of 1 for repetition, 3 of 3 for auditory comprehension. She was able to read and follow single command. The patient was unable to write a sentence, copy a simple geometric design. She was also unable to draw a clock or place the numbers within the clock. Upper extremity apraxia is suggested. DIAGNOSTIC IMPRESSION: Major neurocognitive disorder (dementia), likely multifactorial and due to vascular disease, without behavior disorder - severe at this time (extent to be determined). Unspecified anxiety disorder with depression. RECOMMENDATIONS: The patient will likely require 24-hour care upon discharge that would include assistance in the management of medication, nutrition and finances. A followup neuropsychological evaluation is necessary to clarify the severity of her cognitive functioning status post discharge and the resolution of her acute medical needs. The use of medication to support memory and an antidepressant may be of benefit. The patient will require supervision upon discharge provided by an independent apartment. At least assisted living for environmental support will be necessary to maintain safety. Thank you very much for allowing me to provide the consultation on this patient. <ELECTRONICALLY SIGNED> By: Dwight Gomez, PhD 05/25/18 [id number] 1729 1801 Dwight Gomez, PhD /nt
--- NOTE | ~2018-05-19 | PLAN ---
[facility] [place] [address] REHAB UNIT PLAN OF CARE Name: TENNILLE HESS Room #: 512-P ADM IN M.R.#: [id number] Admission: 05/19/18 Attend Phys: Clint Jaramillo MD Discharge: Date of : 36 Report #: [id number] THIS REPORT FOR: //name// CC: Clint Joyce [facility] DATE OF SERVICE: 05/22/2018 PROGRESS NOTE/OVERALL PLAN OF CARE SUBJECTIVE: The patient is seen back today in followup. She is in no distress. Last recorded temperature 97.6, pulse 94, respirations 18, blood pressure 170/73. Her Jacobson catheter was removed. Nursing has been monitoring regarding her postvoid residuals. She has had some incontinent episodes of urination, but her last bladder scan was 120 and she did not need in and out catheterization. She has the abdominal binder in place. Transfers are max assist. She has been up 2 feet in the parallel bars max assist x 2. In occupational therapy, lower body dressing is dependent. Speech therapy reveals [id number] comprehensive deficits. She is on a pureed diet with thin liquids. She has severe cognition. ASSESSMENT: 1. Multiple cerebrovascular accidents, bilateral cerebral hemisphere distribution, basal ganglia and thalamic. 2. Seizure disorder with Neurology involvement as noted. 3. Encephalopathy with noted hypoxia. This is multifactorial. 4. The cerebrovascular accident is secondary to hypoperfusion. 5. Perforated duodenal ulcer, status post exploratory laparotomy on 05/11/2018. 6. Pulmonary embolism, status post IVC filter. 7. Systemic inflammatory response syndrome with lactic acidosis. 8. Medical complexity with generalized debilitation. 9. Pulmonary hypertension. 10. Hypernatremia. 11. Acute renal failure with electrolyte abnormalities. PLAN: The overall plan of care is based on the preadmission screen, post-admission physician evaluation and information garnered from therapy assessments. 1. Estimated length of stay is probably going to be quite long at least 2-1/2 to 3 weeks. 2. Medical prognosis is reasonably good. 3. Anticipated interventions includes the interdisciplinary acute inpatient rehabilitation program with PT, OT and speech, rehabilitation nursing assisting regarding medication management, skin care prophylaxis, bowel and bladder issues and nursing education. Case management is involved as well as the interdisciplinary acute rehabilitation team and the leadership development consultant physicians. [address] [address] REHAB UNIT PLAN OF CARE Name: TENNILLE HESS Room #: 512-P [facility] IN ..#: [id number] Admission: 05/19/18 Attend Phys: Clint Jaramillo MD Discharge: Date of : 36 Report #: [id number] 4. Anticipated functional outcomes would be for the patient to become modified independent with transfers, mobility, and ADLs as well as to improve as far as cognition, so that the patient can return back to the home setting. 5. Discharge destination is back to the home setting where she lives in an independent living apartment at [facility]. We will need to see if she can get more assistance there. It also depends upon the progress that she makes. In the short run, our goals are going to be for her to become modified independent at least at the wheelchair level and hopefully to further progress from there and she is at quite a low level at this time. 6. Expected therapy by discipline includes PT, OT and speech 1 hour per day each 5 days a week throughout the duration of the acute inpatient rehabilitation stay. <ELECTRONICALLY SIGNED> By: Clint Jaramillo MD 05/26/18 1429 0819 0840 Clint Jaramillo MD /nt
[~2018-05-19 16:33] MED LIST: ACCUNEB SO1.25 MG/1 INH; ASPIR 8181 MG PO; ATENOLOL 100MG100 MG PO; ATIVAN0.5 MG PO; DIFLUCAN200 MG PO; ENALAPRILA1.25 MG/M1 IV PUSH; FENTANYL 0.50 MCG/ML IV PUSH; FOSAMAX 70 MG T70 MG PO; KEPPRA750 MG PO; LEVOXYL100 MCG PO; LISINOPRIL10 MG PO; NORVASC10 MG PO; NORVASC5 MG PO; PLAVIX 75 MG TA75 M1 PO; XANAX 0.5 MG0.5 M1 PO; ZOSYN 3.373.375 GM/1 IV
[2018-05-19 18:13] VITALS: BP 136/69
[2018-05-19 19:29] VITALS: BP 133/76
[2018-05-20 05:50] LABS: MCHC 34.7 g/dL (28.0-37.0); MCV 97.9 fL (80.0-100.0); RBC 2.66 mil/uL (4.20-5.00); RDW 12.9 % (10.5-14.5); WBC 9.2 thou/uL (4.0-11.0)
[2018-05-20 06:09] LABS: CALCIUM 8.2 mg/dL (8.5-10.1); CREATININE 0.9 mg/dL (0.6-1.0); POTASSIUM 3.8 mmol/L (3.5-5.1)
[2018-05-20 08:00] VITALS: BP 164/73
[2018-05-20 15:38] LABS: % SATURATION 29 % (20-39); IRON 38 ug/dL (50-170); TIBC 131 ug/dL (250-450)
[2018-05-20 15:39] LABS: CHOLESTEROL 202 mg/dL (<200); HDL CHOLESTEROL 29 mg/dL (>40); LDL CHOLESTEROL 143 mg/dL (<100); TRIGLYCERIDE 150 mg/dL (<150); VLDL 30 mg/dL (<40)
[2018-05-20 15:40] LABS: SERUM ASSESSMENT Clear
[2018-05-20 20:17] VITALS: BP 160/75
[2018-05-21 07:35] VITALS: BP 184/84
[2018-05-21 20:21] VITALS: BP 170/73
[2018-05-22 07:25] VITALS: BP 175/75
[2018-05-22 19:47] VITALS: BP 167/71
[2018-05-23 07:25] VITALS: BP 137/71
[2018-05-23 20:02] VITALS: BP 188/83
[2018-05-24 07:25] VITALS: BP 178/88
[2018-05-24 14:00] VITALS: BP 154/76
[2018-05-24 15:50] VITALS: BP 183/80
[2018-05-24 20:26] VITALS: BP 96/67
[2018-05-25 05:30] LABS: ABSOLUTE NEUTROPHILS 5.1 thou/uL (1.4-8.2); BASOPHILS 2.1 % (0.0-2.0); EOSINOPHILS 6.7 % (0.0-3.0); HEMATOCRIT 23.5 % (37.0-47.0); HEMOGLOBIN 8.2 gm/dL (12.0-15.0); LYMPHOCYTES 15.6 % (24.0-44.0); MCH 33.7 pg (26.0-34.0); MCHC 35.1 g/dL (28.0-37.0); MCV 95.9 fL (80.0-100.0); MONOCYTES 9.8 % (1.0-8.0); PLATELET COUNT 320 thou/uL (150-400); POLYS 65.8 % (36.0-66.0); RBC 2.45 mil/uL (4.20-5.00); RDW 13.1 % (10.5-14.5); WBC 7.7 thou/uL (4.0-11.0)
[2018-05-25 05:34] LABS: CALCIUM 7.8 mg/dL (8.5-10.1)
[2018-05-25 05:42] LABS: POTASSIUM 2.9 mmol/L (3.5-5.1)
[2018-05-25 07:30] VITALS: BP 185/90
[2018-05-25 13:09] VITALS: BP 150/90
[2018-05-25 20:20] VITALS: BP 144/88
[2018-05-25 21:00] VITALS: BP 167/91
[2018-05-26 06:21] LABS: CALCIUM 8.2 mg/dL (8.5-10.1); MAGNESIUM 1.7 mg/dL (1.8-2.4)
[2018-05-26 07:40] VITALS: BP 172/87
[2018-05-26 19:30] VITALS: BP 182/89
[2018-05-27 08:00] VITALS: BP 149/71
[2018-05-27 19:45] VITALS: BP 172/73
[2018-05-28 06:23] LABS: ABSOLUTE NEUTROPHILS 3.2 thou/uL (1.4-8.2); BASOPHILS 2.1 % (0.0-2.0); EOSINOPHILS 11.2 % (0.0-3.0); HEMATOCRIT 21.5 % (37.0-47.0); HEMOGLOBIN 7.5 gm/dL (12.0-15.0); LYMPHOCYTES 19.1 % (24.0-44.0); MCH 33.9 pg (26.0-34.0); MCHC 34.9 g/dL (28.0-37.0); MCV 97.1 fL (80.0-100.0); MONOCYTES 10.5 % (1.0-8.0); PLATELET COUNT 254 thou/uL (150-400); POLYS 57.1 % (36.0-66.0); RBC 2.21 mil/uL (4.20-5.00); RDW 13.4 % (10.5-14.5); WBC 5.6 thou/uL (4.0-11.0)
[2018-05-28 06:32] LABS: CREATININE 1.2 mg/dL (0.6-1.0); MAGNESIUM 1.7 mg/dL (1.8-2.4); POTASSIUM 3.4 mmol/L (3.5-5.1)
[2018-05-28 07:40] VITALS: BP 164/86
[2018-05-28 22:05] VITALS: BP 167/93
[2018-05-29 03:00] LABS: CALCIUM 8.2 mg/dL (8.5-10.1); CREATININE 1.3 mg/dL (0.6-1.0); MAGNESIUM 1.9 mg/dL (1.8-2.4); POTASSIUM 4.2 mmol/L (3.5-5.1)
[2018-05-29 03:37] LABS: ABSOLUTE NEUTROPHILS 3.4 thou/uL (1.4-8.2); BASOPHILS 1.2 % (0.0-2.0); EOSINOPHILS 10.5 % (0.0-3.0); HEMATOCRIT 22.1 % (37.0-47.0); HEMOGLOBIN 7.7 gm/dL (12.0-15.0); LYMPHOCYTES 20.6 % (24.0-44.0); MCH 34.4 pg (26.0-34.0); MCV 98.4 fL (80.0-100.0); MONOCYTES 10.1 % (1.0-8.0); PLATELET COUNT 254 thou/uL (150-400); POLYS 57.6 % (36.0-66.0); RBC 2.25 mil/uL (4.20-5.00); RDW 13.2 % (10.5-14.5); WBC 5.9 thou/uL (4.0-11.0)
[2018-05-29 08:46] VITALS: BP 123/62
[2018-05-29 20:18] VITALS: BP 190/87
[2018-05-30 07:30] VITALS: BP 177/80
[2018-05-30 12:00] VITALS: BP 102/61
[2018-05-30 19:28] VITALS: BP 159/80
[2018-05-31 09:00] VITALS: BP 147/73
[2018-05-31 20:00] VITALS: BP 164/75
[2018-06-01 04:27] LABS: CALCIUM 8.1 mg/dL (8.5-10.1); CREATININE 1.5 mg/dL (0.6-1.0); MAGNESIUM 1.8 mg/dL (1.8-2.4); POTASSIUM 3.4 mmol/L (3.5-5.1)
[2018-06-01 04:54] LABS: ABSOLUTE NEUTROPHILS 3.9 thou/uL (1.4-8.2); HEMATOCRIT 22.2 % (37.0-47.0); HEMOGLOBIN 7.5 gm/dL (12.0-15.0); LYMPHOCYTES 19.4 % (24.0-44.0); MCH 32.7 pg (26.0-34.0); MCHC 33.9 g/dL (28.0-37.0); MCV 96.5 fL (80.0-100.0); MONOCYTES 10.1 % (1.0-8.0); PLATELET COUNT 225 thou/uL (150-400); POLYS 59.5 % (36.0-66.0); RDW 13.2 % (10.5-14.5); WBC 6.5 thou/uL (4.0-11.0)
[2018-06-01 08:00] VITALS: BP 102/59
[2018-06-01 19:27] VITALS: BP 162/72
[2018-06-02 07:55] VITALS: BP 115/70
[2018-06-02 19:50] VITALS: BP 185/86
[2018-06-02 21:26] VITALS: BP 165/82
[2018-06-03 08:55] VITALS: BP 113/63
[2018-06-03 22:01] VITALS: BP 161/81
[2018-06-04 03:52] LABS: HEMATOCRIT 22.7 % (37.0-47.0); HEMOGLOBIN 7.9 gm/dL (12.0-15.0); MCH 33.4 pg (26.0-34.0); MCHC 34.7 g/dL (28.0-37.0); MCV 96.3 fL (80.0-100.0); RBC 2.35 mil/uL (4.20-5.00); RDW 13.3 % (10.5-14.5); WBC 6.1 thou/uL (4.0-11.0)
[2018-06-04 03:55] LABS: CALCIUM 8.3 mg/dL (8.5-10.1); CREATININE 1.4 mg/dL (0.6-1.0); POTASSIUM 3.9 mmol/L (3.5-5.1)
[2018-06-04 09:00] VITALS: BP 118/64
[2018-06-04 21:27] VITALS: BP 187/86
[2018-06-05 06:12] LABS: ABSOLUTE NEUTROPHILS 3.5 thou/uL (1.4-8.2); EOSINOPHILS 7.6 % (0.0-3.0); HEMATOCRIT 21.9 % (37.0-47.0); HEMOGLOBIN 7.7 gm/dL (12.0-15.0); LYMPHOCYTES 20.5 % (24.0-44.0); MCH 33.2 pg (26.0-34.0); MCHC 35.1 g/dL (28.0-37.0); MCV 94.5 fL (80.0-100.0); MONOCYTES 11.9 % (1.0-8.0); PLATELET COUNT 270 thou/uL (150-400); RBC 2.32 mil/uL (4.20-5.00); RDW 13.1 % (10.5-14.5)
[2018-06-05 06:30] LABS: CALCIUM 8.7 mg/dL (8.5-10.1); CREATININE 1.2 mg/dL (0.6-1.0); MAGNESIUM 1.5 mg/dL (1.8-2.4); POTASSIUM 3.6 mmol/L (3.5-5.1)
[2018-06-05 08:59] VITALS: BP 105/55
[2018-06-05 20:31] VITALS: BP 161/72
[2018-06-06 08:45] VITALS: BP 127/56
[2018-06-06 19:34] VITALS: BP 164/64
[2018-06-07 08:18] VITALS: BP 186/82
[2018-06-07 19:10] VITALS: BP 180/85
[2018-06-08 08:42] VITALS: BP 165/78
[2018-06-08 20:30] VITALS: BP 154/77
[2018-06-09 03:49] LABS: CALCIUM 8.7 mg/dL (8.5-10.1); CREATININE 1.2 mg/dL (0.6-1.0); MAGNESIUM 1.7 mg/dL (1.8-2.4); POTASSIUM 3.8 mmol/L (3.5-5.1)
[2018-06-09 04:38] LABS: ABSOLUTE NEUTROPHILS 5.6 thou/uL (1.4-8.2); BASOPHILS 1.3 % (0.0-2.0); EOSINOPHILS 6.1 % (0.0-3.0); HEMATOCRIT 23.3 % (37.0-47.0); HEMOGLOBIN 8.3 gm/dL (12.0-15.0); MCH 34.2 pg (26.0-34.0); MCHC 35.6 g/dL (28.0-37.0); MCV 96.2 fL (80.0-100.0); MONOCYTES 8.9 % (1.0-8.0); PLATELET COUNT 305 thou/uL (150-400); POLYS 62.7 % (36.0-66.0); RBC 2.42 mil/uL (4.20-5.00); RDW 13.5 % (10.5-14.5); WBC 8.9 thou/uL (4.0-11.0)
[2018-06-09 22:45] VITALS: BP 171/82
[2018-06-10 08:30] VITALS: BP 174/88
[2018-06-10 20:29] VITALS: BP 158/78
[2018-06-11 07:40] VITALS: BP 175/66
[2018-06-11] MEDS ORDERED: IRON325 PO (11:33)
[2018-06-11] MEDS ORDERED: COREG3.125 MG PO (11:33)
[2018-06-11] MEDS ORDERED: PROTONIX40 M1 PO (11:33)
[2018-06-11] MEDS ORDERED: ERGOCALCIF50000 UNIT PO (11:33)
[2018-06-11] MEDS ORDERED: FLONASE 0.05%50 MCG NASAL (11:33)
[2018-06-11] MEDS ORDERED: ZYRTEC10 M2 PO (11:33)
[2018-06-11] MEDS ORDERED: LISINOPRIL10 MG PO (11:33)
[2018-06-11] MEDS ORDERED: KEPPRA750 MG PO (11:33)
[2018-06-11] MEDS ORDERED: FOLIC ACID1 MG PO (11:33)
[2018-06-11] MEDS ORDERED: ACIDOPHILUS1 EAC4 PO (11:33)
[2018-06-11] MEDS ORDERED: ENOXAPARIN30 MG/0.1 SUBQ (11:33)
[2018-06-11] MEDS ORDERED: TYLENOL EXTRA500 MG PO (11:33)
[2018-06-11] MEDS ORDERED: COLACE100 MG PO (11:33)
[2018-06-11] MEDS ORDERED: FLOMAX0.4 MG PO (11:33)
[2018-06-11] MEDS ORDERED: LIPITOR10 MG PO (11:33)
== END 2018-06-11 14:31 | DRG 56 ==
PROVIDERS: Hospitalist; Nurse Practitioner; Nurse Practitioner Acute Care; Nurse Practitioner Family; Physical Medicine & Rehabilitation
DX: G81.91 Hemiplegia, unspecified affecting right dominant side (principal); I63.8 Other cerebral infarction; G93.40 Encephalopathy, unspecified; I26.99 Other pulmonary embolism without acute cor pulmonale; K26.5 Chronic or unspecified duodenal ulcer with perforation; K65.9 Peritonitis, unspecified; R65.20 Severe sepsis without septic shock; A41.9 Sepsis, unspecified organism; J96.01 Acute respiratory failure with hypoxia; E87.2 Acidosis; E87.0 Hyperosmolality and hypernatremia; E46 Unspecified protein-calorie malnutrition; N17.9 Acute kidney failure, unspecified; Z68.1 Body mass index [BMI] 19.9 or less, adult; R13.10 Dysphagia, unspecified; E86.0 Dehydration; G40.909 Epilepsy, unspecified, not intractable, without status epilepticus; I27.20 Pulmonary hypertension, unspecified; R41.0 Disorientation, unspecified; I10 Essential (primary) hypertension; E03.9 Hypothyroidism, unspecified; Z60.2 Problems related to living alone; R53.81 Other malaise; Z66 Do not resuscitate; F01.50 Vascular dementia, unspecified severity, without behavioral disturbance, psychotic disturbance, mood disturbance, and anxiety; E87.6 Hypokalemia; I95.9 Hypotension, unspecified; D63.8 Anemia in other chronic diseases classified elsewhere; E55.9 Vitamin D deficiency, unspecified; R41.89 Other symptoms and signs involving cognitive functions and awareness; D50.9 Iron deficiency anemia, unspecified; M79.89 Other specified soft tissue disorders; F03.90 Unspecified dementia, unspecified severity, without behavioral disturbance, psychotic disturbance, mood disturbance, and anxiety; Z78.1 Physical restraint status; Z88.6 Allergy status to analgesic agent; Z88.8 Allergy status to other drugs, medicaments and biological substances; Z48.815 Encounter for surgical aftercare following surgery on the digestive system; Z98.890 Other specified postprocedural states
CPT/HCPCS: 10112